=== PATIENT | male | born 1980 | race Caucasian/White ===

== ENCOUNTER 2018-10-26 23:44 | Emergency (ER) | payer SELFPAY ==
[~2018-10-26] VITALS: Ht 172.7 cm; Wt 81.6 kg
[~2018-10-26 23:44] MED LIST: SUDAFED PO
--- NOTE | 2018-10-27 00:42 | NUR ---
Patient is AOx4, speaking in complete sentences, speech is clear. Able to follow /comprehend directions. Gait is stable. No cardiovascular distress noted. Rate/rhythm regular. No CP. No respiratory distress noted. Respirations even , unlabored, symmetrical chest rise. No adventitious sounds noted. Chief complaint: Patient comes in FROM HOME C/O DYSURIA X 1DAY AND GREENISH PENILE DISCHARGE. STATES HE HAD UNPROTECTED INTERCOURSE PRIOR TO THE SYMPTOMS STARTED. +NAUSEA, -EMESIS, -DIARRHEA, Denies Fever/Chills/HEADACHE. No recent travel. No pertinent medical history/NKDA. + ETOH/ -recreational drug use/ 10cigarettes per day. SAFETY Patient in bed, bed in lowest position. Siderails up x 2. Call light within reach. Will continue to monitor accordingly
[2018-10-27] MEDS ORDERED: CEFTRIAXONE 500 MG VIAL IM ONE (01:00)
[2018-10-27] MEDS ORDERED: AZITHROMYCIN 250 MG TABLET PO ONE (01:00)
[2018-10-27] MEDS ORDERED: ONDANSETRON ODT 4 MG TAB.RAPDIS SL ONE (01:00)
--- NOTE | 2018-10-27 01:30 | NUR ---
ABLE TO PROVIDE URINE. MD AT BEDSIDE FOR HISTORY AND PHYSICAL.
[2018-10-27] MEDS ORDERED: ONDANSETRON ODT 4 MG TAB.RAPDIS ONE (01:52)
[2018-10-27] MEDS ORDERED: AZITHROMYCIN 250 MG TABLET ONE (01:52)
[2018-10-27] MEDS ORDERED: CEFTRIAXONE 500 MG VIAL ONE (01:52)
[2018-10-27 01:59] LABS: *BILIRUBIN,URIN 1+ (NEGATIVE); *BLOOD, URINE 2+ (NEGATIVE); *CLARITY,URINE CLOUDY (CLEAR); *COLOR,URINE YELLOW (YELLOW); *KETONES,URINE NEGATIVE (NEGATIVE); LEUKOCYTE ESTERASE ,URINE 2+ (NEGATIVE); NITRITE, URINE NEGATIVE (NEGATIVE); PH,URINE 5.5 (5.0-8.0); UGLUCOSE NEGATIVE (NEGATIVE)
[2018-10-27 02:05] LABS: BACTERIA,URINE FEW /HPF (NONE SEEN); SQUAMOUS EPITHELIAL CELL,UR FEW /HPF (NONE SEEN); WBC,URINE TNTC /HPF (0-3)
--- NOTE | 2018-10-27 02:33 | NUR ---
Patient discharged to home in stable conditon. Written and verbal after care instructions given. Patient verbalizes understanding of instructions. ALL BELONGINGS WITH PATIENT AMBULATORY WITH STABLE GAIT
[2018-10-27 02:36] VITALS: BP 147/88
[2018-10-29 09:06] LABS: *TRIC.VAG. NAA Negative (Negative)
[2018-10-29 10:06] LABS: *GC NAA Positive (Negative)
== END 2018-10-27 02:36 | disposition home or self-care (01) ==
LOC: ER 23:49
DX: N34.2 Other urethritis (principal); N39.0 Urinary tract infection, site not specified; F17.200 Nicotine dependence, unspecified, uncomplicated; Z79.899 Other long term (current) drug therapy
CPT/HCPCS: 81000; 81001; 87086; 87491; 96372; 99283; J0696; J3490; A4663; Q0144; Q0162